=== PATIENT | male | born 1980 | race Caucasian/White ===

== ENCOUNTER 2018-02-08 14:45 | Emergency (ER) | payer OTHER ==
[2018-02-08 15:30] LABS: PLATELET COUNT 185 10^3/uL (150-400)
[2018-02-08] MEDS ORDERED: NS 1,000 ML IV ONE (15:41)
--- NOTE | 2018-02-08 15:43 | EDPHY ---
H & P Stated Complaint: rectal bleeding, abd pain Time Seen by Provider: 02/08/18 14:59 HPI/ROS: CHIEF COMPLAINT: Rectal bleeding HISTORY OF PRESENT ILLNESS: 37-year-old male presents with lower abdominal pain and rectal bleeding. Onset of severe lower abdominal cramping yesterday evening. After the onset of cramping, he had an episode of diarrhea. Intermittent abdominal pain and diarrhea throughout the night. This morning he had severe lower abdominal crampy again, followed by bright red blood per rectum x 3. Associated with nausea and dry heaves yesterday evening. Decreased oral intake today. History of similar symptoms several months ago, did not seek medical care. Currently the lower abdominal pain is mild. No prior history of inflammatory bowel disease and no recent foreign travel. REVIEW OF SYSTEMS: complete 10 point ROS reviewed and is negative except for the noted elements in the HPI - Personal History Current Tetanus/Diphtheria Vaccine: Yes Current Tetanus Diphtheria and Acellular Pertussis (TDAP): Yes - Medical/Surgical History Hx Asthma: No Hx Chronic Respiratory Disease: No Hx Diabetes: No Hx Cardiac Disease: No Hx Renal Disease: No Hx Cirrhosis: No Hx Alcoholism: No Hx HIV/AIDS: No Hx Splenectomy or Spleen Trauma: No Other PMH: denies - Social History Smoking Status: Former smoker Alcohol Use: Sober Drug Use: None - Physical Exam Exam: General Appearance: Alert, pleasant Eyes: Pupils equal and round, no conjunctival pallor or injection ENT, Mouth: Mucous membranes slightly dry Neck: Normal inspection Respiratory: Lungs are clear to auscultation Cardiovascular: Regular rate and rhythm Gastrointestinal: Abdomen is soft, right lower quadrant and suprapubic tenderness, no peritoneal signs, normal bowel sounds Neurological: A&O, nonfocal, normal gait Skin: Warm and dry, no rash Extremities: Normal inspection Psychiatric: Mood and affect normal Constitutional: Initial Vital Signs Temperature (C) 36.5 C 02/08/18 14:48 Heart Rate 88 02/08/18 14:48 Respiratory Rate 16 02/08/18 14:48 Blood Pressure 127/76 H 02/08/18 14:48 O2 Sat (%) 98 02/08/18 14:48 O2 Delivery Mode Room Air Allergies/Adverse Reactions: No Known Allergies Allergy (Unverified 02/08/18 14:48) Home Medications: Medication Instructions Recorded NK [No Known Home Meds] 02/08/18 Medical Decision Making - Diagnostics Imaging Results: Imaging Impressions Abdomen CT 02/08/18 15:41 Impression: 1. Normal CT abdomen and pelvis with contrast enhancement. 2. No CT evidence of appendicitis, abscess or bowel obstruction. Findings and recommendations discussed with Emergency Department physician, Allyson Cavanaugh at 1604 hour, 02/08/2018. Final report concurs with initial preliminary interpretation. Imaging: Discussed imaging studies w/ call box wirer Radiologist ED Course/Re-evaluation: This patient presents with lower abdominal cramping and rectal bleeding, concerning for inflammatory bowel disease, gastroenteritis or possibly diverticulitis. Abdominal exam reveals lower abdominal tenderness without peritoneal signs. CT scan the abdomen pelvis ordered and is unremarkable. Results discussed with the patient. He continues to have mild pain. Abdominal exam remains unchanged. No rectal bleeding while in the emergency department and hematocrit is stable. I feel that he is safe and stable for outpatient evaluation abdominal pain and rectal bleeding. Warning signs discussed. He will follow up with GI with [facility]. Differential Diagnosis: Differential diagnosis includes though it is not limited to inflammatory bowel disease, severe anemia, appendicitis, cholecystitis, diverticulitis, pyelonephritis, bowel perforation, small bowel obstruction. - Data Points Laboratory Results: Laboratory Results 02/08/18 15:02 02/08/18 15:02 02/08/18 02/08/18 15:02 15:02 WBC 7.98 10^3/uL 10^3/uL (3.80-9.50) RBC 4.99 10^6/uL 10^6/uL (4.40-6.38) Hgb 15.8 g/dL g/dL (13.7-17.5) Hct 44.6 % % (40.0-51.0) MCV 89.4 fL fL (81.5-99.8) MCH 31.7 pg pg (27.9-34.1) MCHC 35.4 g/dL g/dL (32.4-36.7) RDW 12.4 % % (11.5-15.2) Plt Count 185 10^3/uL 10^3/uL (150-400) MPV 10.1 fL fL (8.7-11.7) Neut % (Auto) 81.8 % H % (39.3-74.2) Lymph % (Auto) 13.7 % L % (15.0-45.0) [place] % (Auto) 3.9 % L % (4.5-13.0) Eos % (Auto) 0.1 % L % (0.6-7.6) Baso % (Auto) 0.4 % % (0.3-1.7) Nucleat RBC Rel Count 0.0 % % (0.0-0.2) Absolute Neuts (auto) 6.53 10^3/uL H 10^3/uL (1.70-6.50) Absolute Lymphs (auto) 1.09 10^3/uL 10^3/uL (1.00-3.00) Absolute Monos (auto) 0.31 10^3/uL 10^3/uL (0.30-0.80) Absolute Eos (auto) 0.01 10^3/uL L 10^3/uL (0.03-0.40) Absolute Basos (auto) 0.03 10^3/uL 10^3/uL (0.02-0.10) Absolute Nucleated RBC 0.00 10^3/uL 10^3/uL (0-0.01) Immature Gran % 0.1 % % (0.0-1.1) Immature Gran # 0.01 10^3/uL 10^3/uL (0.00-0.10) Sodium 142 mEq/L mEq/L (135-145) Potassium 3.7 mEq/L mEq/L (3.5-5.2) Chloride 108 mEq/L mEq/L (97-110) Carbon Dioxide 22 mEq/l mEq/l (22-31) Anion Gap 12 mEq/L mEq/L (6-14) BUN 17 mg/dL mg/dL (7-23) Creatinine 0.9 mg/dL mg/dL (0.7-1.3) Estimated GFR > 60 Glucose 123 mg/dL H mg/dL (70-100) Calcium 9.9 mg/dL mg/dL (8.5-10.4) Medications Given: Discontinued Medications Sodium Chloride (Ns) 1,000 mls @ 0 mls/hr IV EDNOW ONE; Wide Open PRN Reason: Protocol Stop: 02/08/18 15:42 Last Admin: 02/08/18 15:59 Dose: 1,000 mls Departure - Departure Disposition: Home, Routine, Self-Care Clinical Impression: Rectal bleeding Abdominal pain Qualifiers: Abdominal location: lower abdomen, unspecified Qualified Code(s): R10.30 - Lower abdominal pain, unspecified Condition: Good Instructions: Rectal Bleeding (ED), Acute Abdominal Pain (ED) Additional Instructions: 1. Clear liquids for 24 hours. 2. Advance diet as tolerated. I suggest the BRAT diet to start: bananas, rice, applesauce and toast. 3. Return for worsening symptoms, persistent vomiting, worsening abdominal pain , any concerns. 4. If you have recurrent bleeding/diarrhea, return a sample to the lab. Referrals: Lani Liz MD [Medical Doctor] - 2-3 days, call for appt. (Call to make an appointment.)
[2018-02-08] MEDS ORDERED: IOPAMIDOL (ISOVUE-300) 100 ML BTL ONE (15:44)
[2018-02-08 16:38] VITALS: BP 137/91
== END 2018-02-08 16:38 | disposition home or self-care (01) ==
DX: K62.5 Hemorrhage of anus and rectum (principal); R10.30 Lower abdominal pain, unspecified; E86.9 Volume depletion, unspecified; Z87.891 Personal history of nicotine dependence
CPT/HCPCS: Q9967